=== PATIENT | female | born 1955 | race Caucasian/White ===

== ENCOUNTER → 2017-01-16 | Outpatient (REF) | payer BC | LOC: M SFHCWAGY 11:33 | PROVIDERS: ATTEND Nurse Practitioner Women's Health | DX: Z12.4 Encounter for screening for malignant neoplasm of cervix (principal) ==

== ENCOUNTER → 2020-01-05 | Outpatient (REF) | payer BC | LOC: M SFHCWAGY 16:54 | PROVIDERS: ATTEND Nurse Practitioner Women's Health | DX: Z12.4 Encounter for screening for malignant neoplasm of cervix (principal) | CPT/HCPCS: 87624; G0123 ==

== ENCOUNTER → 2021-06-03 | Outpatient (REF) | payer BC | LOC: M SFHCWAGY 13:11 | PROVIDERS: ATTEND Obstetrics & Gynecology | DX: Z12.4 Encounter for screening for malignant neoplasm of cervix (principal); Z77.9 Other contact with and (suspected) exposures hazardous to health | CPT/HCPCS: 87624; G0123 ==

== ENCOUNTER → 2021-06-27 | Outpatient (REF) | payer BC | LOC: M SFHCDERM 16:58 | PROVIDERS: ATTEND Nurse Practitioner Family | DX: D22.39 Melanocytic nevi of other parts of face (principal) ==

== ENCOUNTER → 2022-06-25 | Outpatient (CLI) | payer BC ==
[~2022-06-25] MED LIST: CALC600T60 PO; LEVO125T4 PO; VITA-199 PO; VITMTA PO
== END ==
LOC: M LABSMTC 11:56
PROVIDERS: ATTEND Anesthesiology
DX: Z01.818 Encounter for other preprocedural examination (principal)

== ENCOUNTER 2022-06-30 11:55 | Day surgery (SDC) | payer BC ==
[~2022-06-30] VITALS: Ht 165.1 cm; Wt 53.1 kg
[2022-06-30] MEDS ORDERED: LR 1,000 ML IV SCH ×2 (12:30→15:20)
[2022-06-30] MEDS ORDERED: LIDOCAINE 1% SDV 5ML VIAL SC PRN (12:30)
[2022-06-30] MEDS ORDERED: SCOPOLAMINE 1MG TRANSDERMAL PATCH TOP ONE (12:35)
[2022-06-30] MEDS ORDERED: METOCLOPRAMIDE INJ 10MG/2ML VIAL As Ordered ONE (14:29)
[2022-06-30] MEDS ORDERED: LIDOCAINE 2% 100MG/5ML SDV (FOR ANES.) As Ordered ONE (14:29)
[2022-06-30] MEDS ORDERED: ONDANSETRON 4MG 2ML VIAL As Ordered ONE (14:29)
[2022-06-30] MEDS ORDERED: MIDAZOLAM INJ 2MG/2ML VIAL As Ordered ONE (14:29)
[2022-06-30] MEDS ORDERED: propofoL 200 MG/20 ML VIAL As Ordered ONE (14:29)
[2022-06-30] MEDS ORDERED: fentaNYL 100 MCG/2 ML INJECTION As Ordered ONE (14:29)
[2022-06-30] MEDS ORDERED: CIPRODEX OTIC SUSP 7.5ML As Ordered ONE (14:38)
[2022-06-30] MEDS ORDERED: ONDANSETRON 4MG 2ML VIAL IV PRN (15:20)
[2022-06-30] MEDS ORDERED: oxyCODONE 5MG TAB PO PRN (15:20)
[2022-06-30] MEDS ORDERED: fentaNYL 100 MCG/2 ML INJECTION IV PRN (15:20)
[2022-06-30 16:46] VITALS: BP 152/73
== END 2022-06-30 16:50 | disposition home or self-care (01) ==
LOC: M SDC 11:55
PROVIDERS: ATTEND Otolaryngology
DX: H70.11 Chronic mastoiditis, right ear (principal); E03.9 Hypothyroidism, unspecified; R51.9 Headache, unspecified; Z79.899 Other long term (current) drug therapy; Z88.5 Allergy status to narcotic agent
CPT/HCPCS: 69220; J1100; J2250; J2405; J2765; J3010

== ENCOUNTER → 2023-01-28 | Outpatient (REF) | payer BC | LOC: M SFHCWAGY 10:37 | PROVIDERS: ATTEND Obstetrics & Gynecology | DX: Z12.4 Encounter for screening for malignant neoplasm of cervix (principal) | CPT/HCPCS: 87624; G0123 ==

== ENCOUNTER → 2024-07-29 | Outpatient (CLI) | payer BC ==
[~2024-07-29] MED LIST changes: +LEVO137T2 PO; +MEMA7CAP PO; +THERTAB52 PO; +YUVA10TA3 PO
== END ==
LOC: M RAD 07:12
PROVIDERS: ATTEND Family Medicine
DX: R10.829 Rebound abdominal tenderness, unspecified site (principal); Z90.49 Acquired absence of other specified parts of digestive tract; R18.8 Other ascites; R93.3 Abnormal findings on diagnostic imaging of other parts of digestive tract

== ENCOUNTER 2024-08-12 06:06 | Day surgery (SDC) | payer BC ==
[~2024-08-12] VITALS: Ht 165.1 cm; Wt 54.7 kg
[2024-08-12] MEDS ORDERED: propofoL 200 MG/20 ML VIAL As Ordered ONE (07:08)
[2024-08-12] MEDS ORDERED: ONDANSETRON 4MG 2ML VIAL As Ordered ONE (07:08)
[2024-08-12] MEDS ORDERED: ACETAMINOPHEN 1000MG/100ML IV BAG As Ordered ONE (07:08)
[2024-08-12] MEDS ORDERED: LIDOCAINE 2% 100MG/5ML SDV (FOR ANES.) As Ordered ONE (07:08)
[2024-08-12] MEDS ORDERED: KETOROLAC 30 MG/ML 1ML VIAL As Ordered ONE (07:08)
[2024-08-12] MEDS ORDERED: fentaNYL 100 MCG/2 ML INJECTION As Ordered ONE (07:09)
[2024-08-12] MEDS ORDERED: MIDAZOLAM INJ 2MG/2ML VIAL As Ordered ONE (07:09)
[2024-08-12] MEDS: ceFAZolin SOD 2 GM IV ONCE IV ONE (07:44)
[2024-08-12] MEDS: SCOPOLAMINE 1MG TRANSDERMAL PATCH As Ordered ONE (07:45)
[2024-08-12] MEDS: LIDOCAINE 2% MDV 20ML VIAL As Ordered ONE (07:48)
[2024-08-12] MEDS: GENTAMICIN SULF 80MG/2ML VIAL As Ordered ONE (08:15)
[2024-08-12] MEDS ORDERED: ONDANSETRON 4MG 2ML VIAL IV PRN (08:50)
[2024-08-12] MEDS ORDERED: diphenhydrAMINE 50MG/ML VIAL IV PRN (08:50)
[2024-08-12] MEDS ORDERED: LR 1,000 ML IV SCH (08:50)
[2024-08-12] MEDS ORDERED: MEPERIDINE 25 MG/ML 1ML VIAL IV PRN (08:50)
[2024-08-12] MEDS ORDERED: METOCLOPRAMIDE INJ 10MG/2ML VIAL IV PRN (08:50)
[2024-08-12] MEDS ORDERED: fentaNYL 100 MCG/2 ML INJECTION IV PRN (08:50)
[2024-08-12 09:57] VITALS: BP 120/67; TEMP 97.4; O2SAT 97
== END 2024-08-12 10:29 | disposition home or self-care (01) ==
LOC: M SDC 06:06
PROVIDERS: ATTEND Podiatrist
DX: M20.11 Hallux valgus (acquired), right foot (principal); E03.9 Hypothyroidism, unspecified; R51.9 Headache, unspecified; Z88.5 Allergy status to narcotic agent; Z79.899 Other long term (current) drug therapy
CPT/HCPCS: 28296; 73630; 76000; 88300; C1713; J0131; J0665; J0690; J1100; J1580; J1885; J2250; J2405; J3010

== ENCOUNTER → 2024-11-28 | Outpatient (CLI) | payer BC ==
[~2024-11-28] MED LIST changes: +GASTROGRAFIN SOLUTION 30 ML As Ordered ONE; +ISOVUE-370 76% 100 ML VIAL As Ordered ONE; +YUVA10TA3
== END ==
LOC: M RAD 08:33
PROVIDERS: ATTEND Family Medicine
DX: R18.8 Other ascites (principal); R10.84 Generalized abdominal pain

== ENCOUNTER → 2024-12-01 | Outpatient (CLI) | payer BC ==
[~2024-12-01] MED LIST changes: -GASTROGRAFIN SOLUTION 30 ML As Ordered ONE; -ISOVUE-370 76% 100 ML VIAL As Ordered ONE
[2024-12-01 07:30] VITALS: TEMP 97.2
[2024-12-01 09:19] VITALS: BP 152/77; O2SAT 99
[2024-12-01 09:25] LABS: SOURCE, BODY FLUID ASCITES
[2024-12-01 09:26] LABS: APPEARANCE, BODY FLUID HAZY (CLEAR); ASCITES FL COLOR YELLOW (COLORLESS)
[2024-12-01 10:00] LABS: SOURCE, BODY FLUID ALBUMIN ASCITES
[2024-12-01 10:05] LABS: SOURCE, BODY FLUID TOT PROTEIN ASCITES
== END ==
LOC: M IRPRO 07:21
PROVIDERS: ATTEND Family Medicine
DX: R18.8 Other ascites (principal); R93.5 Abnormal findings on diagnostic imaging of other abdominal regions, including retroperitoneum; R10.829 Rebound abdominal tenderness, unspecified site

== ENCOUNTER → 2024-12-08 | Outpatient (CLI) | payer BC ==
[~2024-12-08] VITALS: Ht 165.1 cm; Wt 49.0 kg
[2024-12-08 11:31] VITALS: TEMP 98.2
[2024-12-08] MEDS: ceFAZolin SODIUM 2 GM in DEXTROSE 5% (D5W) ADV/MINI-BAG 50 ML IV ONE (11:39)
[2024-12-08] MEDS: LIDOCAINE 1% MDV 20 ML VIAL SC SCH (12:35)
[2024-12-08 12:45] VITALS: BP 152/78; O2SAT 98
== END ==
LOC: M IRPRO 11:24
PROVIDERS: ATTEND Internal Medicine Medical Oncology
DX: R18.8 Other ascites (principal)
CPT/HCPCS: 36561; J0690; J1642

== ENCOUNTER → 2024-12-12 | Outpatient (CLI) | payer BC | LOC: M PLARAD 09:39 | PROVIDERS: ATTEND Internal Medicine Medical Oncology | DX: R18.8 Other ascites (principal) | CPT/HCPCS: 78815; A9552 ==

== ENCOUNTER → 2024-12-26 | Outpatient (CLI) | payer BC ==
[2024-12-26 10:50] LABS: BASO # 0.0 10^3/uL (0.0-0.2); BASO % 0.3 % (0.0-1.0); EOS # 0.2 10^3/uL (0.0-0.5); EOS % 2.4 % (0.0-3.0); LYMPH # 1.2 10^3/uL (1.5-5.0); LYMPH % 18.6 % (24.0-44.0); MONO # 0.6 10^3/uL (0.0-0.8); MONO % 8.5 % (2.0-8.0); NEUTROPHILS # 4.6 10^3/uL (1.5-8.5); NEUTROPHILS % 69.7 % (36.0-66.0); PLATELET COUNT, AUTOMATED 283 10^3/uL (150-450)
== END ==
LOC: M LAB 08:28
PROVIDERS: ATTEND Obstetrics & Gynecology Gynecologic Oncology
DX: C56.9 Malignant neoplasm of unspecified ovary (principal)

== ENCOUNTER → 2025-01-06 | Outpatient (CLI) | payer BC ==
[2025-01-06 12:30] VITALS: BP 179/90; TEMP 98.3; O2SAT 98
== END ==
LOC: M IRPRO 12:16
PROVIDERS: ATTEND Obstetrics & Gynecology Gynecologic Oncology
DX: R18.8 Other ascites (principal)

== ENCOUNTER → 2025-01-09 | Outpatient (CLI) | payer BC ==
[2025-01-09 09:01] LABS: BASO # 0.0 10^3/uL (0.0-0.2); BASO % 0.3 % (0.0-1.0); EOS # 0.3 10^3/uL (0.0-0.5); EOS % 3.7 % (0.0-3.0); LYMPH # 1.5 10^3/uL (1.5-5.0); LYMPH % 19.9 % (24.0-44.0); MONO # 0.7 10^3/uL (0.0-0.8); MONO % 8.9 % (2.0-8.0); NEUTROPHILS # 5.1 10^3/uL (1.5-8.5); NEUTROPHILS % 66.7 % (36.0-66.0); PLATELET COUNT, AUTOMATED 190 10^3/uL (150-450)
[2025-01-09 09:28] LABS: ALT/SGPT 29 U/L (7.0-40); AST/SGOT 23 U/L (<34); CALCIUM LEVEL 9.3 MG/DL (8.3-10.6); CARBON DIOXIDE LEVEL 32 MMOL/L (20-31); CHLORIDE LEVEL 102 MMOL/L (98-107); CREATININE FOR GFR 0.52 MG/DL (0.55-1.30); GLOMERULAR FILTRATION RATE > 90.0 (>45); MAGNESIUM LEVEL 2.1 MG/DL (1.8-2.4); POTASSIUM SERUM 4.3 MMOL/L (3.5-5.1); SODIUM LEVEL 141 MMOL/L (136-145)
[2025-01-09 09:46] LABS: CA 125 163.0 U/ML (<35)
== END ==
LOC: M LAB 08:26
PROVIDERS: ATTEND Obstetrics & Gynecology Gynecologic Oncology
DX: C56.1 Malignant neoplasm of right ovary (principal)

== ENCOUNTER → 2025-01-20 | Outpatient (CLI) | payer BC, MEDICARE ==
[2025-01-20 08:59] LABS: BASO # 0.0 10^3/uL (0.0-0.2); BASO % 0.2 % (0.0-1.0); EOS # 0.1 10^3/uL (0.0-0.5); EOS % 1.9 % (0.0-3.0); LYMPH # 1.3 10^3/uL (1.5-5.0); LYMPH % 23.9 % (24.0-44.0); MONO # 0.3 10^3/uL (0.0-0.8); MONO % 5.9 % (2.0-8.0); NEUTROPHILS # 3.6 10^3/uL (1.5-8.5); NEUTROPHILS % 67.5 % (36.0-66.0); PLATELET COUNT, AUTOMATED 196 10^3/uL (150-450)
== END ==
LOC: M LAB 08:17
PROVIDERS: ATTEND Obstetrics & Gynecology Gynecologic Oncology
DX: C56.1 Malignant neoplasm of right ovary (principal); R18.0 Malignant ascites

== ENCOUNTER → 2025-01-27 | Outpatient (CLI) | payer MEDICARE, BC ==
[2025-01-27 09:46] LABS: BASO # 0.0 10^3/uL (0.0-0.2); BASO % 0.3 % (0.0-1.0); EOS # 0.0 10^3/uL (0.0-0.5); EOS % 1.1 % (0.0-3.0); LYMPH # 1.4 10^3/uL (1.5-5.0); LYMPH % 38.6 % (24.0-44.0); MONO # 0.6 10^3/uL (0.0-0.8); MONO % 15.7 % (2.0-8.0); NEUTROPHILS # 1.5 10^3/uL (1.5-8.5); NEUTROPHILS % 44.0 % (36.0-66.0); PLATELET COUNT, AUTOMATED 249 10^3/uL (150-450)
[2025-01-27 09:51] LABS: ALT/SGPT 82 U/L (7.0-40); AST/SGOT 45 U/L (<34); CALCIUM LEVEL 9.7 MG/DL (8.3-10.6); CARBON DIOXIDE LEVEL 30 MMOL/L (20-31); CHLORIDE LEVEL 103 MMOL/L (98-107); CREATININE FOR GFR 0.48 MG/DL (0.55-1.30); GLOMERULAR FILTRATION RATE > 90.0 (>45); MAGNESIUM LEVEL 2.0 MG/DL (1.8-2.4); POTASSIUM SERUM 4.2 MMOL/L (3.5-5.1); SODIUM LEVEL 142 MMOL/L (136-145)
[2025-01-27 10:11] LABS: CA 125 50.0 U/ML (<35)
== END ==
LOC: M LAB 08:40
PROVIDERS: ATTEND Obstetrics & Gynecology Gynecologic Oncology
DX: C56.9 Malignant neoplasm of unspecified ovary (principal)

== ENCOUNTER → 2025-02-09 | Outpatient (CLI) | payer MEDICARE, BC ==
[2025-02-09 11:58] LABS: BASO # 0.0 10^3/uL (0.0-0.2); BASO % 0.2 % (0.0-1.0); EOS # 0.0 10^3/uL (0.0-0.5); EOS % 0.6 % (0.0-3.0); LYMPH # 1.7 10^3/uL (1.5-5.0); LYMPH % 30.8 % (24.0-44.0); MONO # 0.3 10^3/uL (0.0-0.8); MONO % 6.1 % (2.0-8.0); NEUTROPHILS # 3.3 10^3/uL (1.5-8.5); NEUTROPHILS % 61.4 % (36.0-66.0); PLATELET COUNT, AUTOMATED 204 10^3/uL (150-450)
== END ==
LOC: M LAB 10:17
PROVIDERS: ATTEND Obstetrics & Gynecology Gynecologic Oncology
DX: C56.9 Malignant neoplasm of unspecified ovary (principal)

== ENCOUNTER → 2025-02-15 | Outpatient (CLI) | payer MEDICARE, BC ==
[~2025-02-15] MED LIST changes: +ISOVUE-370 76% 100 ML VIAL As Ordered ONE
== END ==
LOC: M RAD 08:34
PROVIDERS: ATTEND Obstetrics & Gynecology Gynecologic Oncology
DX: C56.9 Malignant neoplasm of unspecified ovary (principal); Z90.49 Acquired absence of other specified parts of digestive tract; K42.9 Umbilical hernia without obstruction or gangrene; M47.815 Spondylosis without myelopathy or radiculopathy, thoracolumbar region; M41.9 Scoliosis, unspecified
CPT/HCPCS: 71260; 74177; Q9967

== ENCOUNTER → 2025-02-20 | Outpatient (CLI) | payer MEDICARE, BC ==
[~2025-02-20] MED LIST changes: -ISOVUE-370 76% 100 ML VIAL As Ordered ONE
[2025-02-20 09:31] LABS: BASO # 0.0 10^3/uL (0.0-0.2); BASO % 0.2 % (0.0-1.0); EOS # 0.0 10^3/uL (0.0-0.5); EOS % 0.6 % (0.0-3.0); LYMPH # 1.5 10^3/uL (1.5-5.0); LYMPH % 28.2 % (24.0-44.0); MONO # 0.8 10^3/uL (0.0-0.8); MONO % 15.7 % (2.0-8.0); NEUTROPHILS # 2.9 10^3/uL (1.5-8.5); NEUTROPHILS % 54.7 % (36.0-66.0); PLATELET COUNT, AUTOMATED 255 10^3/uL (150-450)
[2025-02-20 10:05] LABS: ALT/SGPT 30 U/L (7.0-40); AST/SGOT 27 U/L (<34); CALCIUM LEVEL 9.7 MG/DL (8.3-10.6); CARBON DIOXIDE LEVEL 30 MMOL/L (20-31); CHLORIDE LEVEL 100 MMOL/L (98-107); CREATININE FOR GFR 0.53 MG/DL (0.55-1.30); GLOMERULAR FILTRATION RATE > 90.0 (>45); MAGNESIUM LEVEL 2.2 MG/DL (1.8-2.4); POTASSIUM SERUM 4.3 MMOL/L (3.5-5.1); SODIUM LEVEL 139 MMOL/L (136-145)
[2025-02-20 10:21] LABS: CA 125 20.0 U/ML (<35)
== END ==
LOC: M LAB 08:19
PROVIDERS: ATTEND Obstetrics & Gynecology Gynecologic Oncology
DX: C56.9 Malignant neoplasm of unspecified ovary (principal)

== ENCOUNTER → 2025-03-03 | Outpatient (CLI) | payer MEDICARE, BC ==
[2025-03-03 09:00] LABS: BASO # 0.0 10^3/uL (0.0-0.2); BASO % 0.2 % (0.0-1.0); EOS # 0.1 10^3/uL (0.0-0.5); EOS % 1.2 % (0.0-3.0); LYMPH # 1.5 10^3/uL (1.5-5.0); LYMPH % 29.1 % (24.0-44.0); MONO # 0.5 10^3/uL (0.0-0.8); MONO % 9.1 % (2.0-8.0); NEUTROPHILS # 3.1 10^3/uL (1.5-8.5); NEUTROPHILS % 60.0 % (36.0-66.0); PLATELET COUNT, AUTOMATED 143 10^3/uL (150-450)
== END ==
LOC: M LAB 08:30
PROVIDERS: ATTEND Obstetrics & Gynecology Gynecologic Oncology
DX: C56.9 Malignant neoplasm of unspecified ovary (principal)

== ENCOUNTER → 2025-03-10 | Outpatient (CLI) | payer MEDICARE, BC ==
[2025-03-10 09:36] LABS: BASO # 0.0 10^3/uL (0.0-0.2); BASO % 0.3 % (0.0-1.0); EOS # 0.1 10^3/uL (0.0-0.5); EOS % 1.5 % (0.0-3.0); LYMPH # 1.3 10^3/uL (1.5-5.0); LYMPH % 40.2 % (24.0-44.0); MONO # 0.6 10^3/uL (0.0-0.8); MONO % 17.8 % (2.0-8.0); NEUTROPHILS # 1.3 10^3/uL (1.5-8.5); NEUTROPHILS % 39.9 % (36.0-66.0); PLATELET COUNT, AUTOMATED 208 10^3/uL (150-450)
[2025-03-10 10:06] LABS: ALT/SGPT 28 U/L (7.0-40); AST/SGOT 25 U/L (<34); CALCIUM LEVEL 9.5 MG/DL (8.3-10.6); CARBON DIOXIDE LEVEL 30 MMOL/L (20-31); CHLORIDE LEVEL 100 MMOL/L (98-107); CREATININE FOR GFR 0.52 MG/DL (0.55-1.30); GLOMERULAR FILTRATION RATE > 90.0 (>45); MAGNESIUM LEVEL 2.1 MG/DL (1.8-2.4); POTASSIUM SERUM 4.1 MMOL/L (3.5-5.1); SODIUM LEVEL 139 MMOL/L (136-145)
[2025-03-10 10:22] LABS: CA 125 12.0 U/ML (<35)
== END ==
LOC: M LAB 08:12
PROVIDERS: ATTEND Obstetrics & Gynecology Gynecologic Oncology
DX: C56.9 Malignant neoplasm of unspecified ovary (principal)